=== PATIENT | female | born 1950 | race Caucasian/White ===

== ENCOUNTER 2018-08-16 20:11 | Emergency (ER) | payer MEDICARE, SELFPAY ==
[2018-08-16 20:39] VITALS: BP 134/77; PULSE 68; RESP 16; TEMP 36.5; O2SAT 95; BMI 25.6
--- NOTE | 2018-08-16 20:45 | HMH.EDUTC ---
[facility] [place] Disposition Clinical Impression: At high risk for tick borne illness Disposition: Home, Self-Care Condition on Discharge: Good Instructions: Lyme Disease, DI for Lyme Disease, How to Remove a Tick Additional Instructions: Take medication as prescribed Follow up with family doctor for further evaluation and testing for lyme disease Return if needed Make sure to follow up you will need to have testing, make sure to finish medication Straight to ER if any life threatening symptoms Make sure to protect yourself and check yourself well for ticks Prescriptions: Doxycycline Monohydrate [Doxycycline Nemaha 100mg Tab] 100 mg PO BID 14 Days #28 tab Referrals: Provider,Referral, MD [Primary Care Provider] - As needed (Follow up for further testing and evaluation) Time of Disposition: 20:53 Medical Decision Making - Jamar Inquiry Pt receiving controlled substance: No Jamar was queried for this patient: No Vital Signs: 08/16/18 20:39 Temperature 97.7 F Temperature Source Oral Pulse Rate [Right Brachial] 68 Respiratory Rate 16 Blood Pressure [Right Arm] 134/77 Blood Pressure Mean [Right Arm] 96 Blood Pressure Source [Right Arm] Automatic Cuff Blood Pressure Position [Right Arm] Sitting 02 Sat by Pulse Oximetry 95 Oxygen Delivery Method Room Air [facility] [place] HPI - General Stated complaint: Possible infected tick bite Time Seen by Provider: 08/16/18 20:45 Mode of Arrival: Family Vehicle Source of Information: Patient Limitations: No Limitations Description of Symptoms (Recalled from Triage Doc. by RN): C/O INFECTED TICK BITE TO RIGHT SHOULDER SINCE FRIDAY HEENT Symptoms (Recalled from RN notes): No Resp Symptoms (Recalled from RN notes): No Skin Symptoms (Recalled from RN notes): Yes MS Symptoms (Recalled from RN notes): No Functional Status (Recalled from RN notes): N/A - History of Present Illness Provider Complaint: Patient states that she noticed that she had a bullseye rash from where she removed a tick on Friday and was worried that she may have been bitten by a tick that is carrying lyme disease State that she came in this evening to have it looked at and get medication to treat - Related Data Previous Rx's Medication Instructions Recorded Doxycycline Monohydrate 100 mg PO BID 14 Days #28 tab 08/16/18 [Doxycycline Nemaha 100mg Tab] Allergies Allergy/AdvReac Type Severity Reaction Status Date / Time codeine Allergy Verified 08/16/18 20:43 - Worker's Comp Is this a Worker's Comp case?: No [facility] History - Hepatitis A Screen Drug use history?: No High risk sexual behaviors?: No History of sexually transmitted infection?: No Currently employed?: No Childcare worker?: No Do you have indoor plumbing?: Yes Do you have electricity?: Yes Attestation statement:: This patient has been screened for Hepatitis A risk factors. I have reviewed the patient's past medical history: Yes Laterality Cases: Bilateral: Tonsillectomy Fractures: Yes (WRIST) - Social History Alcohol Intake: never Occupational Status: other - Psychiatric History Expresses thoughts of harming self/others: None Suicide Plan Description: No Plan ROS Obtained: Yes All systems reviewed & no additional complaints, Yes Systems reviewed as appropriate & no additional complaints - Allergic/Immunologic Comments: Red bullseye rash on right upper shoulder where she was bitten by a tick and they removed the tick on friday Physical Exam - General General appearance: alert, in no apparent distress - Respiratory Respiratory exam: Present: normal lung sounds bilaterally. Absent: respiratory distress - Cardiovascular Cardiovascular exam: Present: regular rate, normal rhythm. Absent: JVD - Neurological Exam Neurological exam: Present: alert, oriented X3 - Skin Skin exam: Present: other - Expanded Skin Exam 1 - Red circular rash th
--- NOTE | 2018-08-16 20:50 | ED_ITS ---
[facility] [place] Disposition Clinical Impression: At high risk for tick borne illness Disposition: Home, Self-Care Condition on Discharge: Good Instructions: Lyme Disease, DI for Lyme Disease, How to Remove a Tick Additional Instructions: Take medication as prescribed Follow up with family doctor for further evaluation and testing for lyme disease Return if needed Make sure to follow up you will need to have testing, make sure to finish medication Straight to ER if any life threatening symptoms Make sure to protect yourself and check yourself well for ticks Prescriptions: Doxycycline Monohydrate [Doxycycline King 100mg Tab] 100 mg PO BID 14 Days #28 tab Referrals: Provider,Referral, MD [Primary Care Provider] - As needed (Follow up for further testing and evaluation) Time of Disposition: 20:53 Medical Decision Making - Jamar Inquiry Pt receiving controlled substance: No Jamar was queried for this patient: No Vital Signs: 08/16/18 20:39 Temperature 97.7 F Temperature Source Oral Pulse Rate [Right Brachial] 68 Respiratory Rate 16 Blood Pressure [Right Arm] 134/77 Blood Pressure Mean [Right Arm] 96 Blood Pressure Source [Right Arm] Automatic Cuff Blood Pressure Position [Right Arm] Sitting 02 Sat by Pulse Oximetry 95 Oxygen Delivery Method Room Air [facility] [place] HPI - General Stated complaint: Possible infected tick bite Time Seen by Provider: 08/16/18 20:45 Mode of Arrival: Family Vehicle Source of Information: Patient Limitations: No Limitations Description of Symptoms (Recalled from Triage Doc. by RN): C/O INFECTED TICK BITE TO RIGHT SHOULDER SINCE FRIDAY HEENT Symptoms (Recalled from RN notes): No Resp Symptoms (Recalled from RN notes): No Skin Symptoms (Recalled from RN notes): Yes MS Symptoms (Recalled from RN notes): No Functional Status (Recalled from RN notes): N/A - History of Present Illness Provider Complaint: Patient states that she noticed that she had a bullseye rash from where she removed a tick on Friday and was worried that she may have been bitten by a tick that is carrying lyme disease State that she came in this evening to have it looked at and get medication to treat - Related Data Previous Rx's Medication Instructions Recorded Doxycycline Monohydrate 100 mg PO BID 14 Days #28 tab 08/16/18 [Doxycycline King 100mg Tab] Allergies Allergy/AdvReac Type Severity Reaction Status Date / Time codeine Allergy Verified 08/16/18 20:43 - Worker's Comp Is this a Worker's Comp case?: No [facility] History - Hepatitis A Screen Drug use history?: No High risk sexual behaviors?: No History of sexually transmitted infection?: No Currently employed?: No Childcare worker?: No Do you have indoor plumbing?: Yes Do you have electricity?: Yes Attestation statement:: This patient has been screened for Hepatitis A risk factors. I have reviewed the patient's past medical history: Yes Laterality Cases: Bilateral: Tonsillectomy Fractures: Yes (WRIST) - Social History Alcohol Intake: never Occupational Status: other - Psychiatric History Expresses thoughts of harming self/others: None Suicide Plan Description: No Plan ROS Obtained: Yes All systems reviewed & no additional complaints, Yes Systems review
[2018-08-16 20:58] VITALS: BP 134/77; PULSE 68; RESP 16; TEMP 36.5; O2SAT 95
== END 2018-08-16 20:59 | disposition home or self-care (01) ==
PROVIDERS: Emergency Provider Nurse Practitioner
DX: S40.261A Insect bite (nonvenomous) of right shoulder, initial encounter (principal); Z91.49 Other personal history of psychological trauma, not elsewhere classified
CPT/HCPCS: G0463; 99201

== ENCOUNTER 2019-09-06 11:29 | Emergency (ER) | payer MEDICARE, SELFPAY ==
[2019-09-06 11:31] VITALS: BP 159/97; PULSE 61; PULSE 64; RESP 18; RESP 20; TEMP 36.9; O2SAT 96; O2SAT 97; BMI 25.6
--- NOTE | 2019-09-06 11:53 | PC.NURSE ---
cleaned pts right knee lac out
--- NOTE | 2019-09-06 12:45 | HMH.EDSKAF ---
ED Disposition Clinical Impression: Laceration Disposition: Home, Self-Care Condition on Discharge: Good Instructions: DI for Skin Abscess Referrals: Provider,Referral, [Primary Care Provider] - - Critical Care Critical Care Time: No Attestation: On 09/06/19, the high probability of a clinically significant, sudden or life threatening deterioration of the following system(s) required my full and direct attention, intervention and personal management. The time I documented below is in addition to time spent performing reported procedures but includes the following listed in this critical care notation. Medical Decision Making - Medical Records Medical records reviewed: Yes: I reviewed the patient's medical records. - Jamar Inquiry Pt receiving controlled substance: No Vital Signs: 09/06/19 11:31 Temperature 98.5 F Temperature Source Oral Pulse Rate [Right Radial] 61 Respiratory Rate 20 Blood Pressure [Right Arm] 159/97 H Blood Pressure Mean [Right Arm] 117 Blood Pressure Source [Right Arm] Automatic Cuff Blood Pressure Position [Right Arm] Sitting 02 Sat by Pulse Oximetry 96 Oxygen Delivery Method Room Air - Lab Data Lab results reviewed: Yes: I reviewed the patient's lab results. Skin/Abscess/FB HPI - General Chief complaint: Skin/Abscess/Foreign Body Stated complaint: right knee cut on fence Time Seen by Provider: 09/06/19 12:47 Mode of Arrival: Ambulatory Source of Information: Patient Limitations: No Limitations Description of Symptoms (Recalled from ER Triage Doc. by RN): PT HAS LAC TO RT KNEE AFTER TRIPPING OVER A FENCE - History of Present Illness HPI narrative: 6-year-old female presents with a laceration on her left knee that just happened prior to arrivalPatient denies any recent cough or shortness of breath, patient denies any sore throat or headache, patient denies any loss of taste or smell, patient denies any malaise or fatigue, patient denies any abdominal pain nausea vomiting or diarrhea. - Related Data Allergies Allergy/AdvReac Type Severity Reaction Status Date / Time codeine Allergy Verified 08/16/18 20:43 [facility] History - Hepatitis A Screen Drug use history?: No High risk sexual behaviors?: No History of sexually transmitted infection?: No Currently employed?: No Childcare worker?: No Do you have indoor plumbing?: Yes Do you have electricity?: Yes Attestation statement:: This patient has been screened for Hepatitis A risk factors. I have reviewed the patient's past medical history: Yes Medical History: Denies:: Diabetes Mellitus Type 1, Diabetes Mellitus Type 2 Laterality Cases: Bilateral: Tonsillectomy Fractures: Yes (WRIST) - Social History Smoking Status: Never smoker Alcohol Intake: never Occupational Status: retired ROS Obtained: Yes All systems reviewed & no additional complaints - Constitutional Constitutional: Reports system reviewed and no additional complaints, except as docu - Eyes Eyes: Reports system reviewed and no additional complaints, except as docu - ENT Ears, Nose, Mouth, and Throat: Reports system reviewed and no additional complaints, except as docu - Cardiovascular Cardiovascular: Reports system reviewed and no additional complaints, except as docu - Respiratory Respiratory: Yes system reviewed and no additional complaints, except as docu - Gastrointestinal Gastrointestingal: Reports: system reviewed and no additional complaints, except as docu - Genitourinary Male Genitourinary: Reports difficulty urinating Female Genitourinary: Reports system reviewed and no additional complaints, except as docu - Musculoskeletal Musculoskeletal: Reports system reviewed and no additional complaints, except as docu Physical Exam - General General appearance: alert, in no apparent distress - Head Head exam: atraumatic, normocephalic - Eye Eye exam: Present: normal appearance, PERRL - ENT ENT exam: Present: no
[2019-09-06 13:08] VITALS: BP 131/79; PULSE 76; RESP 18; TEMP 37.2; O2SAT 98
== END 2019-09-06 13:12 | disposition home or self-care (01) ==
PROVIDERS: Emergency Provider Family Medicine
DX: S81.011A Laceration without foreign body, right knee, initial encounter (principal); W01.10XA Fall on same level from slipping, tripping and stumbling with subsequent striking against unspecified object, initial encounter; Y92.017 Garden or yard in single-family (private) house as the place of occurrence of the external cause; Z90.09 Acquired absence of other part of head and neck
CPT/HCPCS: 12001; 99282

== ENCOUNTER 2022-03-01 08:24 | Emergency (ER) | payer MEDICARE, SELFPAY ==
[2022-03-01] VITALS (8 sets, daily range): BP systolic 121–154; BP diastolic 71–86; PULSE 54–86; RESP 16–20; TEMP 36.7; O2SAT 94–98; BMI 25.7; BMI 26.4
--- NOTE | 2022-03-01 08:44 | EXP.UTC ---
Discharge Plan Disposition Patient Disposition: Still a Patient Condition: Undetermined Referrals Follow up/Referrals: Kecia Rivas [Primary Care Provider] - See instructions Activity Restrictions/Add. Instructions Additional Instructions/Restrictions: At this time was felt you are safe to be discharged from the emergency department. If new or worsening symptoms please do not hesitate to return for continued evaluation. Clinical Impressions Clinical Impression: Headache Instructions Patient Instructions: DI for Headache Discharge ED Provider: Fadi Mendez [facility] [place] HPI <KYUNG Yusuf - Last Filed: 03/01/22 09:05> General Chief complaint: Headache Stated complaint: Headache Time Seen by Provider: 03/01/22 08:45 History of Present Illness Provider Complaint: 71 year old female presents with left sided temporal headache of 4 days duration. Had COVID booster Friday morning. Developed severe headache that evening. Rates headache 10/24. She is afraid to move, cough, sneeze, etc due to increased pain. She does not have a history of migraines. She has never had a headache like this before. She has phonophobia, photophobia, nausea. She denies stiff neck. Has tried Ibuprofen, Aspirin with no relief. She lays in bed and does not move. Cannot sleep due to the pain. When she does sleep, the headache is immediately present upon awakening. No fever. Mild dizziness/off balance. No history of HTN, CAD. Onset (ago): day(s) (4) Location: head Relieving factors: none Exacerbating factors: movement Associated symptoms: headaches Treatments prior to arrival: NSAID and aspirin Related Data Allergies Allergy/AdvReac Type Severity Reaction Status Date / Time codeine Allergy Verified 08/16/18 20:43 [facility] <KYUNG Yusuf - Last Filed: 03/01/22 09:05> [facility] Disclaimer: The information contained in this section may have been updated after the patient was seen, as this information can be updated by other users. Medical History (Updated 03/01/22 @ 09:05 by KYUNG Yusuf) Anxiety Depression Surgical History (Updated 03/01/22 @ 08:53 by Eliz Rojo RN) History of hysterectomy Social History (Updated 03/01/22 @ 08:53 by Eliz Rojo RN) Smoking Status: Never smoker alcohol intake: never current occupational status: retired Travel in the last 8 weeks: None <KYUNG Yusuf - Last Filed: 03/01/22 09:05> ROS Obtained: Yes All systems reviewed & no additional complaints except as documented Constitutional Constitutional: Reports headache(s) ENT Ears, Nose, Mouth, and Throat: Reports headache(s) Neurologic Neurologic: Reports headache(s) Physical Exam <KYUNG Yusuf - Last Filed: 03/01/22 09:05> General General appearance: alert and in no apparent distress Head Head exam: atraumatic and normal inspection ENT ENT exam: Present normal exam Neck Neck exam: Present normal inspection Respiratory Respiratory exam: Present normal lung sounds bilaterally Cardiovascular Cardiovascular exam: Present regular rate and normal rhythm Neurological Exam Neurological exam: Present alert, oriented X3, CN II-XII intact and normal gait Psychiatric Psychiatric exam: Present normal affect and normal mood Skin Skin exam: Present warm and dry Medical Decision Making <KYUNG Yusuf - Last Filed: 03/01/22 09:05> Jamar Inquiry Pt receiving controlled substance: No Lab Data Result diagrams: 03/01/22 09:14 03/01/22 09:14 Medical Decision Narrative: Patient appearance WNL but rates pain 8/10 and afraid to move due to increased pain. Due to no history of previous headaches and description of worst headache she has ever had, that has not responded to conservative treatment, sent to ER for imaging of brain to rule out intracranial bleed. <Fadi Mendez MD - Last Filed: 03/01/22 11:27> Medical Decision Narr
--- NOTE | 2022-03-01 09:00 | PC.NURSE ---
PATIENT SENT TO ER PER Jamey TRACEY FOR FURTHER EVALUATION
--- NOTE | 2022-03-01 09:42 | CT_ITS ---
FINAL REPORT CLINICAL HISTORY: severe LEE FINDINGS: Axial images of the head were obtained without contrast. Coronal reformatted images were also obtained.This study was performed with techniques to keep radiation doses as low as reasonably achievable (ALARA). Individualized dose reduction techniques using automated exposure control or adjustment of mA and/or kV according to the patient's size were employed. There is no evidence of intracranial hemorrhage or mass. The ventricular size is within normal limits. There is no evidence of shift of the midline structures. No abnormal extra axial fluid collection is identified. No skull abnormality is seen on the bone window images. There is near total opacification of the left sphenoid sinus. There is mucosal thickening in several ethmoid air cells in the right sphenoid sinus. IMPRESSION: No acute intracranial abnormality. Sinusitis as above. Reviewed, Interpreted and Dictated by Eric Streeter III, MD Transcribed by Deb Baker Authenticated and [facility]
--- NOTE | 2022-03-01 09:44 | HMH.EDGENADL ---
Discharge Plan Disposition Patient Disposition: Still a Patient Condition: Undetermined Referrals Follow up/Referrals: Kecia Rivas [Primary Care Provider] - See instructions Activity Restrictions/Add. Instructions Additional Instructions/Restrictions: At this time was felt you are safe to be discharged from the emergency department. If new or worsening symptoms please do not hesitate to return for continued evaluation. Clinical Impressions Clinical Impression: Headache Instructions Patient Instructions: DI for Headache Discharge ED Provider: Fadi Mendez General Adult HPI General Chief complaint: Headache Stated complaint: Headache Time Seen by Provider: 03/01/22 08:45 Mode of Arrival: Ambulatory Source of Information: Patient Limitations: No Limitations Description of Symptoms (Recalled from ER Triage Doc. by RN): Pt reports History of Present Illness HPI narrative: Patient is a 71-year-old female with past medical history of chronic headaches occurring monthly who presents emergency department for evaluation of headache. Her baseline headaches are regular headaches , bitemporal. This headache was acute in onset after her COVID-vaccine approximately 6 hours later. Symptoms are left-sided, pulsating, nonmodifiable, moderate to severe in intensity. 1 episode of nonbloody nonbilious vomiting. Denies vision changes, jaw claudication symptoms, numbness, paresthesias, acute weakness. No other acute complaints at this time. Onset (ago): day(s) (4) Location: head Relieving factors: none Exacerbating factors: movement Associated symptoms: headaches Treatments prior to arrival: NSAID and aspirin Related Data Allergies Allergy/AdvReac Type Severity Reaction Status Date / Time codeine Allergy Verified 08/16/18 20:43 [facility] Disclaimer: The information contained in this section may have been updated after the patient was seen, as this information can be updated by other users. Medical History (Updated 03/01/22 @ 09:05 by KYUNG Yusuf) Anxiety Depression Surgical History (Updated 03/01/22 @ 08:53 by Eliz Rojo RN) History of hysterectomy Social History (Updated 03/01/22 @ 08:53 by Eliz Rojo RN) Smoking Status: Never smoker alcohol intake: never current occupational status: retired Travel in the last 8 weeks: None ROS Obtained: Yes Systems reviewed as appropriate & no additional complaints except as documented Physical Exam General General appearance: alert and in no apparent distress Head Head exam: atraumatic and normocephalic Eye Eye exam: Present PERRL and EOMI ENT ENT exam: Present mucous membranes moist Neck Neck exam: Present normal inspection Chest Chest inspection: Present normal inspection and symmetric chest wall rise Respiratory Respiratory exam: Present normal lung sounds bilaterally; Absent respiratory distress Cardiovascular Cardiovascular exam: Present regular rate and normal rhythm Abdominal Exam Abdominal exam: Present soft; Absent tenderness Extremities Exam Extremities exam: Present normal inspection Neurological Exam Neurological exam: Present alert, oriented X3 and CN II-XII intact; Absent motor sensory deficit Psychiatric Psychiatric exam: Present normal affect Skin Skin exam: Present warm and dry Medical Decision Making Jamar Inquiry Pt receiving controlled substance: No Vital Signs: 03/01/22 08:30 03/01/22 09:04 03/01/22 09:02 Temperature 98.1 F 98.1 F Temperature Source Oral Oral Pulse Rate 57 L Pulse Rate [Right Brachial] 86 56 L Respiratory Rate 18 18 20 Blood Pressure 139/86 Blood Pressure [Right Arm] 131/72 139/86 Blood Pressure Mean 97 Blood Pressure Mean [Right Arm] 91 103 Blood Pressure Source [Right Arm] Automatic Cuff Automatic Cuff Blood Pressure Position [Right Arm] Sitting Sitting 02 Sat by Pulse Oximetry 98 95 97 Oxygen Delivery Method Room Air Room Air 02/14
[2022-03-01 10:16] LABS: Basophils # 0.1 K/mm3 (0-0.2); Basophils % 0.8 % (0.1-2.0); Eosinophils # 0.2 K/mm3 (0.0-0.4); Eosinophils % 1.8 % (0.1-12.0); Hemoglobin 13.4 g/dL (12.2-16.2); Lymphocytes # 2.3 K/mm3 (0.7-4.5); Lymphocytes % 22.7 % (10-50); Mean Corpuscular HGB Conc 32.8 g/dL (31.8-35.4); Mean Corpuscular Hemoglobin 29.1 pg (27.0-31.2); Mean Corpuscular Volume 88.8 fl (81-99); Mean Platelet Volume 8.7 fl (7.4-10.4); Monocytes # 0.9 K/mm3 (0.1-1.0); Monocytes % 8.7 % (1.7-9.3); Neutrophils # 6.6 K/mm3 (1.8-7.8); Platelet Count 370 K/mm3 (142-424); Red Blood Count 4.62 M/mm3 (4.20-5.40); Red Cell Distribution Width 13.4 % (11.5-17.5)
[2022-03-01 10:18] LABS: Chloride 105 mmol/L (98-107); Potassium 3.7 mmoL/L (3.5-5.1); Sodium 138 mmol/L (136-145)
[2022-03-01 10:21] LABS: Anion Gap 9.7 mEq/L (5-15); Blood Urea Nitrogen 18 mg/dl (7-17); Calcium 9.2 mg/dl (8.4-10.2); Carbon Dioxide 27 mmol/L (22.0-30.0); Creatinine Clearance Estimated 51 mL/min (50-200); Estimated Glomerular Filt Rate 82 ml/min (>60); GFR (African American) 100 ML/MIN (>60); Glucose 86 mg/dl (74-100)
--- NOTE | 2022-03-01 10:28 | PC.NURSE ---
back from ct
--- NOTE | 2022-03-01 11:13 | PC.NURSE ---
checked on pt at this time, pt states pain is much better, reports no needs at this time
== END 2022-03-01 11:45 | disposition home or self-care (01) ==
LOC: UTC 08:26 → ER 09:00
PROVIDERS: Emergency Provider Emergency Medicine; PCP Family Medicine
DX: R51.9 Headache, unspecified (principal); F32.A Depression, unspecified; F41.9 Anxiety disorder, unspecified; Z88.5 Allergy status to narcotic agent
CPT/HCPCS: 70450; 80048; 85025; 96361; 96374; 96375; 99285